=== PATIENT | female | born 1995 | race African-American/Black ===

== ENCOUNTER 2017-11-01 20:07 | Emergency (ER) | payer MEDICAID, OTHER ==
[~2017-11-01] VITALS: Ht 160 cm; Wt 44.8 kg
[2017-11-01] MEDS ORDERED: TETANUS, DIPHTHERIA, PERTUSSIS VAC/PF 0.5ML (>7YR OLD) IM ONE (22:15)
[2017-11-02 01:39] VITALS: BP 110/65
== END 2017-11-02 02:29 | disposition home or self-care (01) ==
LOC: ER 20:07
DX: S06.891A Other specified intracranial injury with loss of consciousness of 30 minutes or less, initial encounter (principal); T81.4XXA Infection following a procedure, initial encounter; V49.88XA Car occupant (driver) (passenger) injured in other specified transport accidents, initial encounter; Y93.89 Activity, other specified; Y92.89 Other specified places as the place of occurrence of the external cause; Y99.8 Other external cause status; Z90.89 Acquired absence of other organs; Z90.49 Acquired absence of other specified parts of digestive tract; Z98.890 Other specified postprocedural states
CPT/HCPCS: 70450; 73562; 90471; 90715; 99284

== ENCOUNTER 2018-04-14 11:58 | Emergency (ER) | payer OTHER ==
[~2018-04-14] VITALS: Ht 157.5 cm; Wt 97.0 kg
[2018-04-14 12:34] VITALS: BP 120/69
[2018-04-14 13:58] LABS: CLARITY URINE CLOUDY (CLEAR); COLOR URINE DARK YELLOW (YELLOW); KETONES URINE TRACE (NEGATIVE); LEUKOCYTE ESTERASE URINE NEGATIVE (NEGATIVE); NITRITE URINE NEGATIVE (NEGATIVE); OCCULT BLOOD URINE NEGATIVE (NEGATIVE); PROTEIN URINE TRACE (NEGATIVE); SPECIFIC GRAVITY URINE 1.036 (1.005-1.030); UROBILINOGEN URINE 0.2 E.U./dL (0.2-1.0)
== END 2018-04-14 18:00 | disposition left against medical advice (07) ==
LOC: ER 11:58
DX: R11.10 Vomiting, unspecified (principal); Z53.21 Procedure and treatment not carried out due to patient leaving prior to being seen by health care provider
CPT/HCPCS: 81025; 87106